=== PATIENT | female | born 1970 | race Caucasian/White ===

== ENCOUNTER 2023-07-03 06:39 | Day surgery (SDC) | payer BC, MEDICAID ==
[~2023-07-03 06:39] MED LIST: Sodium Chloride 0.9% 10 ML Syringe FLUSH PRN; Sodium Chloride 0.9% 10 ML Syringe FLUSH SCH
[2023-07-03] MEDS: Atenolol 25 MG Tab PO ONE (07:19)
[2023-07-03] MEDS ORDERED: fentaNYL 100 MCG/2 ML SDV IVPUSH PRN (07:22)
[2023-07-03] MEDS ORDERED: HYDROmorphone 0.5 MG/0.5 ML Syringe IVPUSH PRN (07:22)
[2023-07-03 07:23] LABS: BASOPHILS PERCENT AUTO 0.6 % (0.0-1.0); EOSINOPHILS ABSOLUTE AUTO 0.1 K/mm3 (0.0-0.4); EOSINOPHILS PERCENT AUTO 1.7 % (0.0-6.0); HEMATOCRIT 33.6 % (37.0-47.0); HEMOGLOBIN 10.3 gm/dl (12.0-16.0); IMMATURE GRAN ABSOLUTE AUTO 0.02 K/mm3 (0.00-0.05); IMMATURE GRAN PERCENT AUTO 0.3 % (0.0-0.4); LYMPHOCYTES ABSOLUTE AUTO 2.3 K/mm3 (1.0-4.8); LYMPHOCYTES PERCENT AUTO 36.1 % (24.0-44.0); MEAN CORPUSCULAR HEMOGLOBIN 22.7 pg (28.0-32.0); MEAN CORPUSCULAR HGB CONC 30.7 g/dl (32.0-36.0); MEAN CORPUSCULAR VOLUME 74.2 fl (83.0-99.0); MEAN PLATELET VOLUME 8.7 fl (9.4-12.3); MONOCYTES ABSOLUTE AUTO 0.6 K/mm3 (0.0-0.8); MONOCYTES PERCENT AUTO 8.5 % (0.0-8.0); NEUTROPHILS ABSOLUTE AUTO 3.4 K/mm3 (1.8-7.7); NEUTROPHILS PERCENT AUTO 52.8 % (41.0-71.0); PLATELET COUNT,PLT 282 K/mm3 (150-400); RED BLOOD CELL COUNT 4.53 M/mm3 (4.10-5.30); WHITE BLOOD CELL COUNT,WBC 6.48 K/mm3 (3.9-11.3)
[2023-07-03] MEDS ORDERED: Rocuronium 50 MG/5 ML Vial ONE (07:25)
[2023-07-03] MEDS ORDERED: Ondansetron 4 MG/2 ML SDV ONE (07:25)
[2023-07-03] MEDS ORDERED: Lidocaine 1% 5 ML VIAL ONE (07:25)
[2023-07-03] MEDS ORDERED: Propofol 200 MG/20 ML SDV ONE (07:25)
[2023-07-03] MEDS ORDERED: Midazolam 1 MG/ML 2 ML SDV ONE (07:25)
[2023-07-03] MEDS ORDERED: fentaNYL 250 MCG/5 ML SDV ONE (07:26)
[2023-07-03] MEDS ORDERED: ceFAZolin 2 GM Vial ONE (07:29)
[2023-07-03] MEDS ORDERED: Dexamethasone 4 MG/ML 5 ML MDV ONE (07:29)
[2023-07-03] MEDS ORDERED: EPINEPHrine 1 MG/ML SDV ONE (07:30)
[2023-07-03] MEDS ORDERED: Bupivacaine 0.5% 30 ML SDV ONE (07:30)
[2023-07-03] MEDS ORDERED: Bupivacaine 0.25% 10 ML SDV ONE (07:30)
[2023-07-03 07:37] LABS: APPEARANCE,URINE CLEAR (Clear); BILIRUBIN,URINE NEGATIVE (Negative); COLOR,URINE YELLOW (Yellow); GLUCOSE,URINE NEGATIVE (Negative); KETONES,URINE NEGATIVE (Negative); LEUKOCYTE ESTERASE,URINE NEGATIVE (Negative); NITRITE,URINE NEGATIVE (Negative); OCCULT BLOOD,URINE NEGATIVE (Negative); PROTEIN,URINE NEGATIVE (Negative); UROBILINOGEN,URINE 0.2 (0.2-1.0)
[2023-07-03 07:37] LABS: BUN/CREATININE RATIO 10.9 (14-18); CALCIUM 8.9 mg/dL (8.5-10.1); CREATININE 1.1 mg/dL (0.55-1.02); EST CRCL DRUG DOSING (CG) 56.64 mL/min
[2023-07-03] MEDS ORDERED: Ketamine 200 MG/20 ML MDV ONE (08:17)
[2023-07-03] MEDS ORDERED: HYDROmorphone 0.5 MG/0.5 ML Syringe ONE (08:26)
[2023-07-03] MEDS ORDERED: Lactated Ringers 1,000 ML ONE (08:50)
[2023-07-03] MEDS ORDERED: Ketorolac 30 MG/ML SDV ONE (09:17)
[2023-07-03] MEDS ORDERED: Neostigmine Methylsulfate 10 MG/10 ML MDV ONE (09:17)
[2023-07-03] MEDS: Ondansetron 4 MG/2 ML SDV IVPUSH PRN (11:14)
[2023-07-03] MEDS: Lactated Ringers 1,000 ML IV SCH (14:25)
== END 2023-07-03 14:10 | disposition home or self-care (01) ==
LOC: JD.SDS 06:39
PROVIDERS: ATTEND Obstetrics & Gynecology
DX: D25.9 Leiomyoma of uterus, unspecified (principal); N73.6 Female pelvic peritoneal adhesions (postinfective); N84.1 Polyp of cervix uteri; D64.9 Anemia, unspecified; F41.9 Anxiety disorder, unspecified; I10 Essential (primary) hypertension; E55.9 Vitamin D deficiency, unspecified; E78.2 Mixed hyperlipidemia; R73.03 Prediabetes; Z79.899 Other long term (current) drug therapy; Z91.030 Bee allergy status
CPT/HCPCS: 36415; 58552; 80048; 81003; 81025; 85025; 86850; 86900; 86901; A9270; J0171; J0665; J0690; J1100; J1170; J1596; J1885; J2250; J2405; J2704; J2710; J3010; J3490; J7120; 00944